=== PATIENT | female | born 1955 | race Caucasian/White ===

== ENCOUNTER 2021-09-30 09:58 | Day surgery (SDC) | payer MEDICARE, SELFPAY ==
[2021-09-30 10:35] VITALS: BP 158/89; PULSE 78; RESP 16; TEMP 37.1; O2SAT 99; BMI 26.9
[2021-09-30] MEDS: Lactated Ringers 1,000 ML 15 ML IV (10:39)
[2021-09-30] MEDS: Cefazolin 2 GM in 0.9% Normal Saline 100 ML IV (12:10)
[2021-09-30] MEDS: Lidocaine 2% (20 ml mdv) 20 ML Vial (12:30)
[2021-09-30] MEDS: Bacitracin 500 UNITS/GM PACKET (12:58)
--- NOTE | 2021-09-30 13:14 | OP.PCM_ITS ---
Report of Operation Date of Procedure: 09/30/21 Pre-Operative Diagnosis: Complex regional pain syndrome of the left upper extre mity, end of life of spinal cord stimulator generator Post-Operative Diagnosis: Complex regional pain syndrome of the left upper extremity, end of life of spinal cord stimulator generator Surgery/Procedure Performed:: Spinal cord stimulator generator replacement at the right abdominal upper quadrant, spinal cord stimulator programming, insertion of [employer] spinal cord stimulator intellus serial number [id number]. Description of Surgical Findings:: History and physical today was reviewed risk and benefits of the procedure explained the patient understood agreed to the procedure and informed consent was obtained IV inserted per routine protocol patient was taken to the operating room placed in the supine position the right side of the abdominal wall area was prepped and draped in a sterile fashion at the upper quadrant as well as the lower quadrant using ChloraPrep, 2 g of Ancef IV piggyback were infused per the anesthesia prior to the incision, at the previously incised spinal cord stimulator generator at the right upper abdominal quadrant the skin and subcutaneous tissue and size were approximately 20 cc of a mix of 0.25% Marcaine and 2% lidocaine 50-50 to the skin and subcutaneous tissue using an 11-gauge blade the skin and subcutaneous tissue was then taken down and a perpendicular incision with approximately 4 inches and wide hemostasis was maintained with Bovie as well as pressure the area was then taken down slowly to the fascia previa spinal cord stimulator generator was then reached careful attention was made to the spinal cord stimulator leads as well as attachment the previous stitches were then cut down and the spinal cord stimulator generator was then removed from its previous pocket hemostasis was maintained during the procedure using Bovie as well as pressure, the screwdriver provided by [employer] kit was then used to remove the spinal cord stimulator leads at the 0-7 position as well as the 8-15 position, once the previous leads were then disconnected from the spinal cord stimulator generator the previous generator was then removed from the pocket completely and taken out for pathology for further evaluation the area was then inspected for any defect or any spinal cord stimulator lead disconnect the new spinal cord stimulator intellus was then inserted and the spinal cord stimulator leads were then connected with the top lead 0-7 position and the bottom lead at 8-15 position, using the screwdriver counterclockwise the spinal cord stimulator leads were then connected firmly to the generator a simple tug at the superior and inferior leads were then used to confirm correct placement of the leads, spinal cord stimulator generator was then placed in the previously placed pocket using a 2-0 silk at the 2:00 as well as the 10 o'clock position of the created pocket sutures were then taken to the fascia and inserted through the eyes of the spinal cord stimulator generator once confirmed correct placement of the spinal cord stimulator into the pocket without any overlapping or spinal cord stimulator leads this positioning the area was then closed in a interrupted fashion using an 0 Vicryl followed by a running 3-0 Vicryl and for the subcuticular closure with a 4-0 Monocryl the area was then dressed with bacitracin and Steri-Strips and using a Tegaderm the area was then closed in a sterile fashion, patient was then taken to recovery in a stable condition. Assessment and plan: This is a 66-year-old female with complex regional pain syndrome of the left upper extremity end of life of a spinal cord stimulator generator status post spinal cord stimulator generator replacement at the right upper abdominal quadrant and spinal cord stimulator programming, patient will continue her current medications, a prescription of Keflex 500 mg capsule 1 p.o. every 8 hours for 7 days, postop instructions were given to the patient in details verbally as well as in writing, patient will follow in approximately 1 week for reevaluation. Type of Anesthesia: General
[2021-09-30 13:15] VITALS: BP 140/76; BP 158/89; PULSE 75; RESP 16; TEMP 36.4; O2SAT 100
[2021-09-30 13:30] VITALS: BP 151/80; BP 158/89; PULSE 60; RESP 16; O2SAT 98
[2021-09-30 13:45] VITALS: BP 146/91; BP 158/89; PULSE 62; RESP 16; O2SAT 98
[2021-09-30 14:06] VITALS: BP 150/92; BP 158/89; PULSE 65; RESP 16; TEMP 36.3; O2SAT 98
[2021-09-30 15:00] VITALS: BP 158/89
== END 2021-09-30 15:15 | disposition home or self-care (01) ==
LOC: SDC 10:09 → AC 10:10
PROVIDERS: Referring Provider Anesthesiology Pain Medicine; Visit Provider Anesthesiology Pain Medicine
PROC: (CPT 63685; principal; 2021-09-30 11:35)
DX: Z45.42 Encounter for adjustment and management of neurostimulator (principal); G90.512 Complex regional pain syndrome I of left upper limb; J45.909 Unspecified asthma, uncomplicated; Z79.899 Other long term (current) drug therapy; G56.40 Causalgia of unspecified upper limb; Z79.891 Long term (current) use of opiate analgesic
CPT/HCPCS: 63685; C1820; J7120; J3490